=== PATIENT | female | born 1960 | race Caucasian/White ===

== ENCOUNTER 2021-11-20 17:29 | Inpatient (IN) | payer MEDICAID ==
[~2021-11-20] VITALS: Ht 167.6 cm; Wt 136.7 kg
--- NOTE | 2021-11-20 17:45 | NUR ---
Dr Alicia at the bedside for MSE.
[2021-11-20 18:09] LABS: HEMATOCRIT 30.9 % (31.2-41.9); MEAN CORPUSCULAR HEMOGLOBIN 25.8 uug (24.7-32.8); MEAN CORPUSCULAR VOLUME 80.5 fL (75.5-95.3); PLATELET COUNT (AUTO) 289 K/uL (179-408)
[2021-11-20] MEDS ORDERED: NYSTATIN POWDER TOP (18:09)
[2021-11-20] MEDS ORDERED: HYDR-4209 PO (18:09)
[2021-11-20] MEDS ORDERED: CYAN-51 SL (18:09)
[2021-11-20] MEDS ORDERED: INSU100C SQ (18:09)
[2021-11-20] MEDS ORDERED: PROTEIN LIQUID PO (18:09)
[2021-11-20] MEDS ORDERED: OMEG1CAP PO (18:09)
[2021-11-20] MEDS ORDERED: CHOL10005 PO (18:09)
[2021-11-20] MEDS ORDERED: AMLO10TA4 PO (18:09)
[2021-11-20] MEDS ORDERED: GLUC1KIT IJ (18:09)
[2021-11-20] MEDS ORDERED: BRIM5DRO RIGHTEYE (18:09)
[2021-11-20] MEDS ORDERED: LORA10TA7 PO (18:09)
[2021-11-20] MEDS ORDERED: COLL30OI TOP (18:09)
[2021-11-20] MEDS ORDERED: SENN-261 PO (18:09)
[2021-11-20] MEDS ORDERED: METO50TA7 PO (18:09)
[2021-11-20] MEDS ORDERED: DEXT38GE12 PO (18:09)
[2021-11-20] MEDS ORDERED: FURO40TA5 PO (18:09)
[2021-11-20] MEDS ORDERED: APIX5TAB PO (18:09)
[2021-11-20] MEDS ORDERED: INSU100I19 SQ (18:09)
[2021-11-20] MEDS ORDERED: NETA2.5D3 EACHEYE (18:09)
[2021-11-20] MEDS ORDERED: BISA10SU61 RC (18:09)
[2021-11-20] MEDS ORDERED: ZINC SULFATE PO (18:09)
[2021-11-20] MEDS ORDERED: CLON0.1T PO (18:09)
[2021-11-20] MEDS ORDERED: DIGO125T PO (18:09)
[2021-11-20] MEDS ORDERED: DORZ10DR13 RIGHTEYE (18:09)
[2021-11-20] MEDS ORDERED: DOCU-141 PO (18:09)
[2021-11-20] MEDS ORDERED: MELA3TAB41 PO (18:09)
[2021-11-20] MEDS ORDERED: CALC1TAB30 PO (18:09)
[2021-11-20] MEDS ORDERED: ACET-2154 PO (18:09)
[2021-11-20] MEDS ORDERED: LEVA1.2528 IH (18:09)
[2021-11-20] MEDS ORDERED: INSU100V10 SQ (18:09)
[2021-11-20] MEDS ORDERED: ASCO500C18 PO (18:09)
[2021-11-20] MEDS ORDERED: IPRA0.2S48 NEB (18:09)
[2021-11-20] MEDS ORDERED: ACET250T3 PO (18:09)
[2021-11-20] MEDS ORDERED: MULT-213 PO (18:09)
--- NOTE | 2021-11-20 18:10 | NUR ---
PT 02 delivary changed from NRM to Nasal cannula at 6L/min, 02 sat 95-96%.
[2021-11-20 18:31] LABS: ALANINE AMINOTRANSFERASE 18 U/L (14-59); ALKALINE PHOSPHATASE 73 U/L (50-136); ASPARTATE AMINOTRANSFERASE 21 U/L (15-37); BILIRUBIN,DIRECT 0.3 mg/dL (0.0-0.2); BILIRUBIN,TOTAL 1.5 mg/dL (0.2-1.0); CHLORIDE 94 mmol/L (98-107); CREATININE 0.5 mg/dL (0.6-1.3); GLUCOSE 100 mg/dL (74-106); UREA NITROGEN, BLOOD 15 mg/dL (7-18)
[2021-11-20] MEDS ORDERED: FUROSEMIDE 40 MG/4 ML VIAL IV ONE (18:45)
[2021-11-20] MEDS ORDERED: CEFTRIAXONE 1 G in IV DEXTROSE 5% 50 ML IV ONE (18:45)
[2021-11-20] MEDS ORDERED: AZITHROMYCIN IV 500 MG in IV DEXTROSE 5% 250 ML IV ONE (18:45)
[2021-11-20 18:49] LABS: CARBON DIOXIDE 52 mmol/L (21-32)
[2021-11-20] MEDS ORDERED: AZITHROMYCIN 500MG/ D5W 250ML IVPB **ER PYXIS ONLY IV ONE (19:04)
[2021-11-20] MEDS ORDERED: CEFTRIAXONE /D5W 50ML IVPB **ER PYXIS IV ONE (19:04)
--- NOTE | 2021-11-20 19:22 | NUR ---
gave pt dinner tray.
--- NOTE | 2021-11-20 22:08 | NUR ---
Report given to Rocio KIRK.
[2021-11-20] MEDS ORDERED: HYDROCODONE/APAP 5-325MG TABLET PO PRN (22:15)
[2021-11-20] MEDS ORDERED: GLUCOSE ORAL GEL 15 GM TUBE PO PRN (22:15)
[2021-11-20] MEDS ORDERED: CLONIDINE HCL 0.1 MG TABLET PO PRN (22:15)
[2021-11-20] MEDS ORDERED: ACETAMINOPHEN 325 MG TABLET PO PRN (22:30)
[2021-11-20] MEDS ORDERED: ONDANSETRON 4 MG/2 ML VIAL IV PRN (22:30)
[2021-11-20] MEDS ORDERED: DEXTROSE 50% 50 ML DISP.SYRIN IV PRN (22:30)
[2021-11-21] VITALS (14 sets, daily range): BP systolic 114–144; BP diastolic 40–69
[2021-11-21] MEDS: MORPHINE SULFATE 2 MG/1 ML DISP.SYRIN IV PRN (02:53)
[2021-11-21] MEDS ORDERED: MAG HYDROX/AL HYDROX/SIMETH 30 ML LIQUID UDC PO PRN (04:15)
--- NOTE | 2021-11-21 05:23 | NUR ---
Admitted to Tele, AFib on monitor. Requested purewick at start of admission, now patient states that she does not want a purewick at this time. IV site is intact. C/o heartburn, given Maalox, tolerated well. On 5L NC, satting 96%. Denies SOB at this time. Able to make needs known. Safety maintained throughout the shift. Will endorse to day shift.
[2021-11-21] MEDS: PANTOPRAZOLE SODIUM 40 MG TABLET.DR PO SCH (06:19)
[2021-11-21] MEDS: BLOOD SUGAR DIAGNOSTIC 1 EACH STRIP VI SCH ×4 (06:25→20:32)
[2021-11-21 06:37] LABS: HEMATOCRIT 28.4 % (31.2-41.9); MEAN CORPUSCULAR HEMOGLOBIN 26.4 uug (24.7-32.8); MEAN CORPUSCULAR VOLUME 80.2 fL (75.5-95.3); PLATELET COUNT (AUTO) 271 K/uL (179-408)
[2021-11-21 07:27] LABS: BILIRUBIN,TOTAL 1.7 mg/dL (0.2-1.0); CREATININE 0.7 mg/dL (0.6-1.3); MAGNESIUM 1.8 mg/dL (1.8-2.4); PHOSPHOROUS 4.4 mg/dL (2.5-4.9); POTASSIUM 4.1 mmol/L (3.5-5.1)
--- NOTE | 2021-11-21 07:33 | NUR ---
Sleeping, on high back rest. O2 at 5L/NC. Tele AFIB 88. Received lab report CO2 of 50. Ice Cream Mixer seen patient with orders for stat ABG, results relayed. Pulmonary consult ordered
[2021-11-21 07:35] LABS: DIGOXIN 0.8 ng/mL (0.9-2.0)
[2021-11-21 07:52] LABS: ABG BASE EXCESS 26.5 mmol/L; ABG HCO3 56.1 mmol/L; ABG PCO2 96.1 mmHg (35.0-45.0); ABG PH 7.384 (7.350-7.450); ABG PO2 81.5 mmHg (75.0-100.0); ABG SITE LEFT RADIAL; ABG TOTAL HEMOGLOBIN 10.2 G/dL (12.0-16.0); MetHb 0.2 % (0.0-1.5); O2Hb 94.4 % (94.0-97.0); VENT MODE Nasal Cannula
[2021-11-21 08:21] LABS: THYROID STIMULATING HORMONE 2.866 mIU/mL (0.358-3.740)
[2021-11-21] MEDS ORDERED: METOPROLOL SUCCINATE XL 50 MG TAB.SR.24H PO SCH (09:00)
[2021-11-21] MEDS ORDERED: ACETAzolamide 250 MG TABLET PO SCH (09:00)
[2021-11-21] MEDS ORDERED: COLLAGENASE OINT 30 GM TUBE TOP SCH (09:00)
[2021-11-21] MEDS ORDERED: FUROSEMIDE 40 MG/4 ML VIAL IV SCH (09:00)
[2021-11-21] MEDS: ASCORBIC ACID 500 MG TABLET PO SCH (09:20)
[2021-11-21] MEDS: DOCUSATE SODIUM 100 MG CAPSULE PO SCH ×2 (09:20→17:00)
[2021-11-21] MEDS: CALCIUM CARB/VITAMIN D 500MG-200UNITS TABLET PO SCH ×2 (09:20→17:00)
[2021-11-21] MEDS: AMLODIPINE 10 MG TABLET PO SCH (09:20)
[2021-11-21] MEDS: DIGOXIN 125 MCG TABLET PO SCH (09:20)
[2021-11-21] MEDS: DORZOLAMIDE/TIMOLOL OPHT DROP 10 ML BOTTLE RIGHTEYE SCH ×2 (09:21→17:38)
[2021-11-21] MEDS: APIXABAN 5 MG TABLET PO SCH ×2 (09:22→21:00)
[2021-11-21] MEDS: PROTEIN SUPPLEMENT (PROSTAT) 30 ML LIQUID PO SCH ×2 (09:22→17:00)
[2021-11-21] MEDS: ACETAzolamide 250 MG TABLET PO SCH ×2 (09:22→17:00)
[2021-11-21] MEDS: OMEGA-3 FATTY ACIDS/FISH OIL CAPSULE PO SCH (09:26)
[2021-11-21] MEDS: ZINC SULFATE 220 MG CAPSULE PO SCH (09:27)
[2021-11-21] MEDS: LORATADINE 10 MG TABLET PO SCH (09:27)
[2021-11-21] MEDS: MULTIVITAMINS,THERAPEUTIC TABLET PO SCH (09:28)
[2021-11-21] MEDS: INSULIN REGULAR, HUMAN 300 UNIT/3 ML VIAL SQ PRN ×3 (09:29→20:35)
--- NOTE | 2021-11-21 09:30 | NUR ---
O2 titrated to 3L/NC with O2 sat goal of 88-92%.
[2021-11-21] MEDS: INSULIN GLARGINE,HUM 300 UNITS/3 ML CARTRIDGE SQ SCH (09:31)
--- NOTE | 2021-11-21 10:27 | NUR ---
Noted 25 Seconds of bradycardia of 15/min. Patient awake, washing her face. Vital signs taken, BP 136/63. Basketballs And Footballs Reverser informed. Metoprolol discontinued. O2 at 3L/NC with O2 sat of 90-92%.
--- NOTE | 2021-11-21 11:48 | NUR ---
Noted another episode of bradycardia.
--- NOTE | 2021-11-21 14:34 | NUR ---
Noted 4-5 seconds pauses. Patient still awake, alert. Underground Conduit Installer informed
--- NOTE | 2021-11-21 16:09 | NUR ---
Noted 10 seconds pauses. FIELD IDENTIFICATION SPECIALIST called. STAT EKG and ABG done. Assistant Manager Retail and Hospitalist informed with orders to transfer to CCU for dopamine drip and placed on BIPAP.
[2021-11-21 16:30] LABS: ABG BASE EXCESS 22.5 mmol/L; ABG HCO3 52.3 mmol/L; ABG PCO2 98.9 mmHg (35.0-45.0); ABG PH 7.341 (7.350-7.450); ABG PO2 66.6 mmHg (75.0-100.0); ABG SITE RIGHT RADIAL; ABG TOTAL HEMOGLOBIN 10.1 G/dL (12.0-16.0); MetHb 0.1 % (0.0-1.5); O2Hb 89.7 % (94.0-97.0); VENT MODE Nasal Cannula
[2021-11-21] MEDS ORDERED: DOPamine IV DRIP 400 MG/250ML 250 ML IV PRN ×2 (16:30→17:00)
--- NOTE | 2021-11-21 16:30 | NUR ---
Transferred to CCU by bed with RT. Report given to CCU RN
--- NOTE | 2021-11-21 16:43 | NUR ---
patient came form medical surgical floor room 305, s/p rapid response c/o 10 to 11 seconds heart pauses.patient came via bed ,awake and alert able to verbalized needs .ON 02 NASAL CANNULA AT 5 L/MIN ,SOB UPON EXERTION ,saturation 86 % rr 22. respiratory therapist at b/s patient with order from Kale to placed on bipap settings 15/5 rate 16 fio2 30% keep saturation 88 % to 92%.placed patient on ccu monitor oriented with call light advised to call for help and assistance . afib rate 73 to afib 48 .patient denies chest pain .
--- NOTE | 2021-11-21 17:08 | NUR ---
started patient on dopamine drip follow dopamine drip protocol .
--- NOTE | 2021-11-21 17:45 | NUR ---
patient verbalized her butt and her back is hurting her ,another RN(daylin) and respiratory therapist turned and reposition patient able to turned help in repositioning .
--- NOTE | 2021-11-21 19:45 | NUR ---
dr: nidhi came and saw patient .
[2021-11-21 20:20] LABS: MetHb 0.2 % (0.0-1.5); VENT MODE BIPAP
[2021-11-21] MEDS: ACETAzolamide SODIUM 500 MG VIAL IV SCH (20:23)
[2021-11-21 20:48] LABS: ABG BASE EXCESS 22.1 mmol/L; ABG HCO3 51.3 mmol/L; ABG PCO2 89.3 mmHg (35.0-45.0); ABG PH 7.377 (7.350-7.450); ABG PO2 54.8 mmHg (75.0-100.0); ABG SITE RIGHT RADIAL; ABG TOTAL HEMOGLOBIN 10.6 G/dL (12.0-16.0); COHb 1.3 % (0.5-1.5)
[2021-11-21] MEDS: MELATONIN 3 MG TABLET PO SCH (21:00)
--- NOTE | 2021-11-21 23:00 | NUR ---
Report received. Patient is awake, alert, on Bipap machine 15/5, RR20, FiO 50%, O2 sat 92%. Afib on the monitor, 79bpm. IV line patent and flushed with ongoing Dopamine 2mcg/kg/min. Taylor catheter draining well to gravity. Call light within reach. Will continue to monitor closely.
--- NOTE | 2021-11-21 23:21 | NUR ---
report given to pearl babin.
[2021-11-22] VITALS (32 sets, daily range): BP systolic 98–138; BP diastolic 37–76
--- NOTE | 2021-11-22 01:46 | NUR ---
No significant change of condition noted. Will continue to monitor closely.
--- NOTE | 2021-11-22 03:11 | NUR ---
FiO2 decreased to 40%, O2 sat 96%, tolerating well. Addendum: 11/23/21 at 2118 by Liberty Ralph RN FiO2 decreased by RT Martinez.
--- NOTE | 2021-11-22 03:37 | NUR ---
PATIENT ON CONT BI/PAP MACHINE WITH FULL LARGE MASK, PT WITH LOW SATS, ON 30/11, RR16, FIO2 @ 30%, ABG WAS DRAWN A FEW TIMES, WITH HIGH PCO2, RE DRAWN TO CONFIRM RESULTS, PCO2 86APPROX, WITH NORMAL PH, , PT THEN PLACED ON FIO2 @ 50%, THEN AFTER ABG CHANGE INCREASE RR 20, PT DOING SLIGHTLY BETTER, RE ADJUST MASK, THEN 08;00, REPEAT ABG.Cindy JUNG RCP Addendum: 11/22/21 at 0345 by EVERTON JUNG RT Amended: Links added. Addendum: 11/22/21 at 0358 by EVERTON JUNG RT TITRATE FIO2 TO 40%, APPROX, 0311 BY RT Dagoberto JUNG RCP
--- NOTE | 2021-11-22 04:30 | NUR ---
Bed bath given. Linen changed.
[2021-11-22 05:31] LABS: HEMATOCRIT 29.7 % (31.2-41.9); MEAN CORPUSCULAR HEMOGLOBIN 26.4 uug (24.7-32.8); MEAN CORPUSCULAR VOLUME 79.9 fL (75.5-95.3); PLATELET COUNT (AUTO) 276 K/uL (179-408)
[2021-11-22 05:45] LABS: CREATININE 0.7 mg/dL (0.6-1.3); PHOSPHOROUS 3.7 mg/dL (2.5-4.9); POTASSIUM 3.7 mmol/L (3.5-5.1)
[2021-11-22] MEDS: BLOOD SUGAR DIAGNOSTIC 1 EACH STRIP VI SCH ×4 (06:35→20:22)
[2021-11-22] MEDS: PANTOPRAZOLE SODIUM 40 MG TABLET.DR PO SCH (06:36)
[2021-11-22] MEDS: INSULIN REGULAR, HUMAN 300 UNIT/3 ML VIAL SQ PRN ×3 (07:30→17:01)
--- NOTE | 2021-11-22 07:30 | NUR ---
received report on pt. in bed resting on bipap, no fever, a/ox4, hr in the 70s, pt gunn in tact and draining urine. IV access left FA 22g and left UA ML. will continue to monitor.
[2021-11-22] MEDS: ACETAzolamide SODIUM 500 MG VIAL IV SCH (08:20)
[2021-11-22] MEDS: ZINC SULFATE 220 MG CAPSULE PO SCH (08:21)
[2021-11-22] MEDS: DOCUSATE SODIUM 100 MG CAPSULE PO SCH ×2 (08:22→16:51)
[2021-11-22] MEDS: DIGOXIN 125 MCG TABLET PO SCH ×2 (08:22→08:39)
[2021-11-22] MEDS: APIXABAN 5 MG TABLET PO SCH ×2 (08:22→20:27)
[2021-11-22] MEDS: ASCORBIC ACID 500 MG TABLET PO SCH (08:22)
[2021-11-22] MEDS: MULTIVITAMINS,THERAPEUTIC TABLET PO SCH (08:23)
[2021-11-22] MEDS: LORATADINE 10 MG TABLET PO SCH (08:23)
[2021-11-22] MEDS: CALCIUM CARB/VITAMIN D 500MG-200UNITS TABLET PO SCH ×2 (08:23→16:52)
[2021-11-22] MEDS: OMEGA-3 FATTY ACIDS/FISH OIL CAPSULE PO SCH (08:23)
[2021-11-22] MEDS: PROTEIN SUPPLEMENT (PROSTAT) 30 ML LIQUID PO SCH ×2 (08:25→16:55)
[2021-11-22] MEDS: DORZOLAMIDE/TIMOLOL OPHT DROP 10 ML BOTTLE RIGHTEYE SCH ×2 (08:31→16:52)
[2021-11-22] MEDS: INSULIN GLARGINE,HUM 300 UNITS/3 ML CARTRIDGE SQ SCH (08:33)
[2021-11-22 08:37] LABS: ABG BASE EXCESS 21.1 mmol/L; ABG HCO3 49.3 mmol/L; ABG PCO2 80.9 mmHg (35.0-45.0); ABG PH 7.403 (7.350-7.450); ABG PO2 54.8 mmHg (75.0-100.0); ABG SITE LEFT RADIAL; ABG TOTAL HEMOGLOBIN 10.2 G/dL (12.0-16.0); COHb 1.5 % (0.5-1.5); MetHb 0.2 % (0.0-1.5); O2Hb 86.6 % (94.0-97.0); VENT MODE Nasal Cannula
[2021-11-22] MEDS: AMLODIPINE 10 MG TABLET PO SCH (08:38)
--- NOTE | 2021-11-22 08:45 | NUR ---
seen my consulting services project manager, orders to hold heart medications, and hold dopamine, will continue if pauses in rhythm occur. pt currently on 3L o2 NC, saturating at 97%.
[2021-11-22] MEDS ORDERED: ACETAzolamide SODIUM 500 MG VIAL IV ONE (09:00)
[2021-11-22] MEDS ORDERED: FUROSEMIDE 40 MG/4 ML VIAL IV SCH (09:00)
[2021-11-22] MEDS: GLUCERNA SHAKE VANILLA 237 ML CAN PO SCH (11:37)
--- NOTE | 2021-11-22 13:23 | NUR ---
Cedric (bariatric bed delivery staff) called earlier and said that the bariatric bed will come today. Primary nurse Liliya notified.
[2021-11-22] MEDS: BRIMONIDINE 0.2% OPHT DROP 10 ML BOTTLE RIGHTEYE SCH (16:53)
[2021-11-22] MEDS: FUROSEMIDE 40 MG/4 ML VIAL IV SCH (16:59)
[2021-11-22] MEDS ORDERED: APIXABAN 5 MG TABLET PO SCH (17:00)
[2021-11-22] MEDS ORDERED: ACETAzolamide SODIUM 500 MG VIAL IV SCH (17:00)
--- NOTE | 2021-11-22 17:22 | NUR ---
1701pm: SBAR received from YELENA Lovell. Fruit Or Nut Grower assumes care. Patient is asleep, on high fowlers' position, AOX4 when awake, respiration: even, shallow and symmetrical, on 1 liter nasal cannula. Patient wants suppository for bowel movement, pending extra staff to help move patient for the rectal suppository administration.
[2021-11-22] MEDS: BISACODYL 10 MG SUPP.RECT RC PRN (17:44)
--- NOTE | 2021-11-22 18:23 | NUR ---
Patient had one large brown solid (slightly hard) bowel movement. Jennifer-anal care done.
--- NOTE | 2021-11-22 20:00 | NUR ---
Patient was transferred to [facility] bed via sliding board, 4 person assisted, without any incident.
[2021-11-22] MEDS: MELATONIN 3 MG TABLET PO SCH (20:24)
[2021-11-22] MEDS: MORPHINE SULFATE 2 MG/1 ML DISP.SYRIN IV PRN (20:28)
[2021-11-22] MEDS ORDERED: VANCOMYCIN IV 2,000 MG in IV DEXTROSE 5% 500 ML IV ONE (22:00)
--- NOTE | 2021-11-22 22:05 | NUR ---
Patient placed on bipap machine c/o RT Juan, tolerating well. Patient fast asleep. Will continue to monitor closely.
[2021-11-22] MEDS ORDERED: VANCOMYCIN 1000 MG VIAL ONE (22:43)
[2021-11-22] MEDS ORDERED: PIPERACILLIN/TAZOBACTAM/D5W 50 ML IV ONE (22:43)
[2021-11-22] MEDS: PIPERACILLIN SODIUM/TAZOBACTAM 3.375 G in IV DEXTROSE 5% 50 ML IV SCH (22:48)
[2021-11-23] VITALS (24 sets, daily range): BP systolic 97–154; BP diastolic 48–82
[2021-11-23] MEDS ORDERED: PIPERACILLIN SODIUM/TAZO 3.375 GM VIAL ONE (00:51)
--- NOTE | 2021-11-23 00:53 | NUR ---
PT WAS ON O2 2 1.5 l/m nc, pt placed on bi/pap @ 22:00, with 15/5 r20 , titrate fio2 28-30%, keep sat 88-92% , adjust mask several times, leaks alot under chin, pt does wake up alot . Lonnie JUNG SALES TEAM RECRUITER Addendum: 11/23/21 at 0055 by EVERTON JUNG RT Amended: Links added.
[2021-11-23] MEDS: PIPERACILLIN SODIUM/TAZOBACTAM 3.375 G in IV DEXTROSE 5% 50 ML IV SCH ×3 (05:39→21:23)
[2021-11-23 05:43] LABS: HEMATOCRIT 28.3 % (31.2-41.9); MEAN CORPUSCULAR HEMOGLOBIN 26.5 uug (24.7-32.8); MEAN CORPUSCULAR VOLUME 80.4 fL (75.5-95.3); PLATELET COUNT (AUTO) 247 K/uL (179-408)
[2021-11-23 05:54] LABS: BILIRUBIN,TOTAL 1.6 mg/dL (0.2-1.0); CREATININE 0.8 mg/dL (0.6-1.3); PHOSPHOROUS 3.6 mg/dL (2.5-4.9); POTASSIUM 3.1 mmol/L (3.5-5.1); TOTAL PROTEIN, SERUM 6.4 g/dL (6.4-8.2)
--- NOTE | 2021-11-23 06:36 | NUR ---
Lab called and spoke with Hussain arellano: critical lab CO2 53. Called [facility] and spoke with Timoteo Abdullahi NP. Per Bradly MCCURDY, no new orders.
[2021-11-23] MEDS: BLOOD SUGAR DIAGNOSTIC 1 EACH STRIP VI SCH ×4 (06:47→20:38)
[2021-11-23] MEDS: PANTOPRAZOLE SODIUM 40 MG TABLET.DR PO SCH (06:47)
[2021-11-23] MEDS: INSULIN REGULAR, HUMAN 300 UNIT/3 ML VIAL SQ PRN ×4 (07:46→20:40)
[2021-11-23] MEDS: ZINC SULFATE 220 MG CAPSULE PO SCH (08:24)
[2021-11-23] MEDS: OMEGA-3 FATTY ACIDS/FISH OIL CAPSULE PO SCH (08:24)
[2021-11-23] MEDS: LORATADINE 10 MG TABLET PO SCH (08:24)
[2021-11-23] MEDS: DOCUSATE SODIUM 100 MG CAPSULE PO SCH ×2 (08:24→17:53)
[2021-11-23] MEDS: CALCIUM CARB/VITAMIN D 500MG-200UNITS TABLET PO SCH ×2 (08:24→17:53)
[2021-11-23] MEDS: FUROSEMIDE 40 MG/4 ML VIAL IV SCH ×2 (08:24→17:53)
[2021-11-23] MEDS: MULTIVITAMINS,THERAPEUTIC TABLET PO SCH (08:25)
[2021-11-23] MEDS: ASCORBIC ACID 500 MG TABLET PO SCH (08:25)
[2021-11-23] MEDS: APIXABAN 5 MG TABLET PO SCH ×2 (08:30→20:28)
[2021-11-23] MEDS: INSULIN GLARGINE,HUM 300 UNITS/3 ML CARTRIDGE SQ SCH (08:31)
[2021-11-23] MEDS: BRIMONIDINE 0.2% OPHT DROP 10 ML BOTTLE RIGHTEYE SCH ×2 (08:32→17:53)
[2021-11-23] MEDS: GLUCERNA SHAKE VANILLA 237 ML CAN PO SCH (08:33)
[2021-11-23] MEDS: PROTEIN SUPPLEMENT (PROSTAT) 30 ML LIQUID PO SCH ×2 (08:33→17:49)
[2021-11-23] MEDS: DORZOLAMIDE/TIMOLOL OPHT DROP 10 ML BOTTLE RIGHTEYE SCH ×2 (08:33→17:53)
[2021-11-23 08:36] LABS: ABG BASE EXCESS 18.2 mmol/L; ABG HCO3 47.5 mmol/L; ABG PCO2 86.2 mmHg (35.0-45.0); ABG PH 7.359 (7.350-7.450); ABG PO2 58.2 mmHg (75.0-100.0); ABG SITE LEFT RADIAL; ABG TOTAL HEMOGLOBIN 11.5 G/dL (12.0-16.0); COHb 1.8 % (0.5-1.5); MetHb 0.1 % (0.0-1.5); O2Hb 87.1 % (94.0-97.0); VENT MODE Nasal Cannula
[2021-11-23] MEDS ORDERED: POTASSIUM CHLORIDE 20 MEQ POWDER PACKET PO ONE (09:15)
--- NOTE | 2021-11-23 09:26 | NUR ---
removed pt from bipap and placed on n/c 1 lpm 02. pt anna well. pt awake and responsive at this time. slight redness noted on nose bridge despite pt having nose jelly/ protector on while on bipap. nurse made aware.
[2021-11-23] MEDS ORDERED: POTASSIUM CHLORIDE 20 MEQ TAB.PRT.SR PO ONE (09:30)
--- NOTE | 2021-11-23 09:46 | NUR ---
doctor иван in the unit to see patient. ok for downgrade per cardio stand point.
[2021-11-23] MEDS: POTASSIUM CHLORIDE 50 ML IV SCH ×4 (09:51→17:49)
--- NOTE | 2021-11-23 12:00 | NUR ---
Per Dr. Currie patient to continue ICU status monitoring one more night.
[2021-11-23] MEDS ORDERED: VANCOMYCIN IV 1,500 MG in IV DEXTROSE 5% 500 ML IV SCH (14:00)
[2021-11-23] MEDS: VANCOMYCIN IV 2,000 MG in IV DEXTROSE 5% 500 ML IV SCH (14:14)
--- NOTE | 2021-11-23 19:00 | NUR ---
Received report. Patient is awake, alert, denies pain at this time. NAD. IV patent and flushed. VSS. Able to make needs known with assistance. Call light within reach. Will continue to monitor closely.
[2021-11-23] MEDS: MELATONIN 3 MG TABLET PO SCH (20:23)
[2021-11-23] MEDS ORDERED: REMEDY ESSENTIAL ZINC PASTE 113 GM TOP PRN (20:30)
--- NOTE | 2021-11-23 21:20 | NUR ---
Placed on bipap machine c/o RT Juan, tolerating well, O2 sat 92%. Will continue to monitor closely.
[2021-11-23] MEDS ORDERED: VANCOMYCIN 1000 MG VIAL ONE (21:52)
--- NOTE | 2021-11-23 23:43 | NUR ---
PATIENT ON O2 1.5- 2.0L/M NC, AT BEGINNING OF SHIFT, THEN FALLING ASLEEP, PT PLACED ON BI/PAP APPROX. 22:00 WITH SETTINGS, 20/10, RR20, FIO2 @ 30%, PT TENDS TO BREATH SLIGHTLY SHALLOW AND RAPID 30RR, AT TIMES, ADJUST MASK AT TIMES, WILL MONITOR, SAT 87-92% , .Cindy JUNG DATA CENTER OPERATOR Addendum: 11/23/21 at 2345 by EVERTON JUNG RT Amended: Links added.
[2021-11-24] VITALS (15 sets, daily range): BP systolic 98–131; BP diastolic 50–80
[2021-11-24] MEDS: VANCOMYCIN IV 2,000 MG in IV DEXTROSE 5% 500 ML IV SCH (04:02)
[2021-11-24] MEDS: PIPERACILLIN SODIUM/TAZOBACTAM 3.375 G in IV DEXTROSE 5% 50 ML IV SCH ×3 (05:04→21:17)
[2021-11-24 05:17] LABS: HEMATOCRIT 25.8 % (31.2-41.9); MEAN CORPUSCULAR HEMOGLOBIN 26.4 uug (24.7-32.8); PLATELET COUNT (AUTO) 219 K/uL (179-408)
[2021-11-24 05:29] LABS: CREATININE 0.8 mg/dL (0.6-1.3); MAGNESIUM 2.8 mg/dL (1.8-2.4); PHOSPHOROUS 3.6 mg/dL (2.5-4.9); POTASSIUM 3.4 mmol/L (3.5-5.1)
--- NOTE | 2021-11-24 05:38 | NUR ---
Bipap removed and placed on NC @1.5 LPM c/o RT Juan, O2 sat 92%.
[2021-11-24] MEDS: PANTOPRAZOLE SODIUM 40 MG TABLET.DR PO SCH (06:14)
[2021-11-24] MEDS: BLOOD SUGAR DIAGNOSTIC 1 EACH STRIP VI SCH ×4 (07:01→21:38)
[2021-11-24 08:32] LABS: ABG BASE EXCESS 17.4 mmol/L; ABG HCO3 45.6 mmol/L; ABG PCO2 80.7 mmHg (35.0-45.0); ABG PO2 74.5 mmHg (75.0-100.0); ABG SITE LEFT RADIAL; ABG TOTAL HEMOGLOBIN 9.8 G/dL (12.0-16.0); COHb 1.5 % (0.5-1.5); MetHb 0.1 % (0.0-1.5); O2Hb 92.2 % (94.0-97.0); VENT MODE Nasal Cannula
[2021-11-24] MEDS: ASCORBIC ACID 500 MG TABLET PO SCH (08:53)
[2021-11-24] MEDS: CALCIUM CARB/VITAMIN D 500MG-200UNITS TABLET PO SCH ×2 (08:53→17:08)
[2021-11-24] MEDS: OMEGA-3 FATTY ACIDS/FISH OIL CAPSULE PO SCH (08:53)
[2021-11-24] MEDS: MULTIVITAMINS,THERAPEUTIC TABLET PO SCH (08:53)
[2021-11-24] MEDS: LORATADINE 10 MG TABLET PO SCH (08:53)
[2021-11-24] MEDS: ZINC SULFATE 220 MG CAPSULE PO SCH (08:53)
[2021-11-24] MEDS: FUROSEMIDE 40 MG/4 ML VIAL IV SCH ×2 (08:54→17:08)
[2021-11-24] MEDS: INSULIN GLARGINE,HUM 300 UNITS/3 ML CARTRIDGE SQ SCH (08:56)
[2021-11-24] MEDS: INSULIN REGULAR, HUMAN 300 UNIT/3 ML VIAL SQ PRN ×4 (08:58→21:46)
[2021-11-24] MEDS ORDERED: POTASSIUM CHLORIDE 20 MEQ POWDER PACKET PO ONE (09:00)
[2021-11-24] MEDS: PROTEIN SUPPLEMENT (PROSTAT) 30 ML LIQUID PO SCH ×2 (09:41→17:06)
[2021-11-24] MEDS: GLUCERNA SHAKE VANILLA 237 ML CAN PO SCH (09:41)
[2021-11-24] MEDS: DORZOLAMIDE/TIMOLOL OPHT DROP 10 ML BOTTLE RIGHTEYE SCH ×2 (09:42→17:09)
[2021-11-24] MEDS: BRIMONIDINE 0.2% OPHT DROP 10 ML BOTTLE RIGHTEYE SCH ×2 (09:42→17:09)
[2021-11-24] MEDS: DOCUSATE SODIUM 100 MG CAPSULE PO SCH ×2 (10:10→17:08)
[2021-11-24] MEDS: POTASSIUM CHLORIDE 50 ML IV SCH ×2 (10:10→14:14)
[2021-11-24] MEDS: APIXABAN 5 MG TABLET PO SCH ×2 (10:10→21:18)
--- NOTE | 2021-11-24 12:33 | NUR ---
WOUND CARE CONSULT: PT PRESENTS WITH STAGE 3 ULCER TO RT BUTTOCK, RASH WITH PEELING SKIN TO BUTTOCKS AND REDNESS WITH SWELLING AND SCALY SKIN TO LOWER LEGS, ALL PRESENT ON ADMISSION. DR RIVERO NOTIFIED OF SURGICAL CONSULT AND DPM CONSULT REQUESTS. RECOMMENDATIONS MADE FOR SKIN PROTECTION. DISCUSSED WITH NURSING STAFF. MD IN AGREEMENT WITH PLAN OF CARE. Addendum: 11/24/21 at 1234 by MAXI RED RN Amended: Links added.
[2021-11-24] MEDS: MORPHINE SULFATE 2 MG/1 ML DISP.SYRIN IV PRN (15:00)
[2021-11-24] MEDS ORDERED: VITAMINS A AND D OINT TP PRN (15:15)
[2021-11-24] MEDS: MELATONIN 3 MG TABLET PO SCH (21:17)
[2021-11-24] MEDS ORDERED: CEFTRIAXONE 1 G in IV DEXTROSE 5% 50 ML IV SCH (21:45)
[2021-11-24] MEDS ORDERED: CEFTRIAXONE /D5W 50ML IVPB **ER PYXIS IV ONE (22:50)
[2021-11-25 00:16] VITALS: BP 119/71
[2021-11-25 04:00] VITALS: BP 114/59
[2021-11-25 05:20] LABS: HEMATOCRIT 27.1 % (31.2-41.9); PLATELET COUNT (AUTO) 234 K/uL (179-408)
[2021-11-25 05:25] LABS: CREATININE 0.8 mg/dL (0.6-1.3); MAGNESIUM 1.9 mg/dL (1.8-2.4); PHOSPHOROUS 3.7 mg/dL (2.5-4.9); POTASSIUM 3.5 mmol/L (3.5-5.1)
[2021-11-25 05:37] LABS: VANCOMYCIN,RANDOM 28.5 ug/mL (18.0-26.0)
--- NOTE | 2021-11-25 06:50 | NUR ---
Patient has not met any of her goals. All the outcomes are still in progress. Interventions continue per MD orders and Nursing care plan. Addendum: 11/25/21 at 0652 by ANNY CRENSHAW RN Amended: Links added.
[2021-11-25] MEDS ORDERED: POTASSIUM CHLORIDE 20 MEQ POWDER PACKET GT ONE (07:30)
[2021-11-25] MEDS ORDERED: POTASSIUM CHLORIDE 20 MEQ TAB.PRT.SR PO ONE (07:30)
[2021-11-25 08:00] VITALS: BP_SYST 123; BP_SYST 131; BP_DIAS 54; BP_DIAS 62
[2021-11-25] MEDS: BLOOD SUGAR DIAGNOSTIC 1 EACH STRIP VI SCH ×4 (08:14→21:32)
[2021-11-25] MEDS: PANTOPRAZOLE SODIUM 40 MG TABLET.DR PO SCH (08:14)
[2021-11-25] MEDS: ASCORBIC ACID 500 MG TABLET PO SCH (09:03)
[2021-11-25] MEDS: ZINC SULFATE 220 MG CAPSULE PO SCH (09:03)
[2021-11-25] MEDS: OMEGA-3 FATTY ACIDS/FISH OIL CAPSULE PO SCH (09:03)
[2021-11-25] MEDS: CALCIUM CARB/VITAMIN D 500MG-200UNITS TABLET PO SCH ×2 (09:03→17:20)
[2021-11-25] MEDS: MULTIVITAMINS,THERAPEUTIC TABLET PO SCH (09:04)
[2021-11-25] MEDS: LORATADINE 10 MG TABLET PO SCH (09:04)
[2021-11-25] MEDS: FUROSEMIDE 40 MG/4 ML VIAL IV SCH ×2 (09:04→17:21)
[2021-11-25] MEDS: PROTEIN SUPPLEMENT (PROSTAT) 30 ML LIQUID PO SCH ×2 (09:04→17:21)
[2021-11-25] MEDS: GLUCERNA SHAKE VANILLA 237 ML CAN PO SCH (09:04)
[2021-11-25] MEDS: DOCUSATE SODIUM 100 MG CAPSULE PO SCH ×2 (09:04→17:20)
[2021-11-25] MEDS: APIXABAN 5 MG TABLET PO SCH ×2 (09:19→21:16)
[2021-11-25] MEDS: DORZOLAMIDE/TIMOLOL OPHT DROP 10 ML BOTTLE RIGHTEYE SCH ×2 (09:23→17:21)
[2021-11-25] MEDS: BRIMONIDINE 0.2% OPHT DROP 10 ML BOTTLE RIGHTEYE SCH ×2 (09:31→17:21)
[2021-11-25] MEDS: INSULIN GLARGINE,HUM 300 UNITS/3 ML CARTRIDGE SQ SCH (09:53)
[2021-11-25] MEDS ORDERED: ACETAzolamide SODIUM 500 MG VIAL IV ONE (10:15)
[2021-11-25] MEDS: SENNOSIDES 1 TABLET PO PRN (10:26)
[2021-11-25 12:00] VITALS: BP 115/71
[2021-11-25] MEDS: INSULIN REGULAR, HUMAN 300 UNIT/3 ML VIAL SQ PRN ×2 (12:02→17:16)
--- NOTE | 2021-11-25 14:31 | NUR ---
Transferred from ccu. Alert and oriented x3 able to make needs known. On 2lpm nc satting 93%. no sob noted. afib on telemonitor hr 90. Patient made comfortable. Call light in reach. Cont to monitor.
[2021-11-25 14:34] VITALS: BP 116/61
[2021-11-25] MEDS: MORPHINE SULFATE 2 MG/1 ML DISP.SYRIN IV PRN (14:41)
[2021-11-25] MEDS: CLOTRIMAZOLE 1% CREAM 30 GM TUBE TOP SCH ×2 (17:21→21:15)
[2021-11-25 20:52] VITALS: BP 114/63
[2021-11-25] MEDS: CEFTRIAXONE 2 G in IV DEXTROSE 5% 100 ML IV SCH (21:13)
[2021-11-25] MEDS: MELATONIN 3 MG TABLET PO SCH (21:14)
[2021-11-26 00:59] VITALS: BP 141/60
[2021-11-26 04:00] VITALS: BP 120/77
--- NOTE | 2021-11-26 05:17 | NUR ---
Pt slept throughout the night. Bipap placed on around 2345H, tolerated well. IV site intact. No distress noted. Denies SOB. Safety maintained. Will endorse to day shift.
[2021-11-26] MEDS: PANTOPRAZOLE SODIUM 40 MG TABLET.DR PO SCH (06:15)
[2021-11-26] MEDS: BLOOD SUGAR DIAGNOSTIC 1 EACH STRIP VI SCH ×4 (06:26→20:30)
[2021-11-26 06:48] LABS: HEMATOCRIT 28.2 % (31.2-41.9); MEAN CORPUSCULAR HEMOGLOBIN 26.2 uug (24.7-32.8); MEAN CORPUSCULAR VOLUME 80.7 fL (75.5-95.3); PLATELET COUNT (AUTO) 252 K/uL (179-408)
[2021-11-26 07:30] LABS: CREATININE 0.7 mg/dL (0.6-1.3); PHOSPHOROUS 3.5 mg/dL (2.5-4.9); POTASSIUM 3.5 mmol/L (3.5-5.1); VANCOMYCIN,RANDOM 17.3 ug/mL (18.0-26.0)
--- NOTE | 2021-11-26 08:00 | NUR ---
PATIENT RESTING IN BED NO SS OF PAIN OR DISTRESS. O2 DECREASE TO 1L VIA NC SATURATING 90-92 %. CONTINUE TELE STATUS CONTROLLED AFIB ON MONITOR
[2021-11-26] MEDS ORDERED: ACETAzolamide SODIUM 500 MG VIAL IV ONE (08:45)
[2021-11-26] MEDS: CALCIUM CARB/VITAMIN D 500MG-200UNITS TABLET PO SCH ×2 (08:59→16:24)
[2021-11-26] MEDS: DOCUSATE SODIUM 100 MG CAPSULE PO SCH ×2 (08:59→16:24)
[2021-11-26] MEDS: OMEGA-3 FATTY ACIDS/FISH OIL CAPSULE PO SCH (08:59)
[2021-11-26] MEDS: APIXABAN 5 MG TABLET PO SCH ×2 (08:59→20:32)
[2021-11-26] MEDS: MULTIVITAMINS,THERAPEUTIC TABLET PO SCH (08:59)
[2021-11-26] MEDS: LORATADINE 10 MG TABLET PO SCH (08:59)
[2021-11-26] MEDS: ASCORBIC ACID 500 MG TABLET PO SCH (08:59)
[2021-11-26] MEDS: SENNOSIDES 1 TABLET PO PRN (08:59)
[2021-11-26] MEDS: ZINC SULFATE 220 MG CAPSULE PO SCH (08:59)
[2021-11-26] MEDS: VANCOMYCIN IV 1,500 MG in IV DEXTROSE 5% 500 ML IV SCH (09:00)
[2021-11-26] MEDS: FUROSEMIDE 40 MG/4 ML VIAL IV SCH ×2 (09:00→16:24)
--- NOTE | 2021-11-26 09:00 | NUR ---
SEEN BY EDITOR PRODUCER FOR FOLLOW-UP SEE NOTES
[2021-11-26] MEDS: CLOTRIMAZOLE 1% CREAM 30 GM TUBE TOP SCH ×4 (09:03→16:25)
[2021-11-26] MEDS: POTASSIUM CHLORIDE 20 MEQ TAB.PRT.SR PO SCH ×2 (09:06→15:21)
[2021-11-26] MEDS: GLUCERNA SHAKE VANILLA 237 ML CAN PO SCH (09:08)
[2021-11-26] MEDS: PROTEIN SUPPLEMENT (PROSTAT) 30 ML LIQUID PO SCH ×2 (09:10→16:25)
[2021-11-26] MEDS: BRIMONIDINE 0.2% OPHT DROP 10 ML BOTTLE RIGHTEYE SCH ×2 (10:36→16:24)
[2021-11-26] MEDS: DORZOLAMIDE/TIMOLOL OPHT DROP 10 ML BOTTLE RIGHTEYE SCH ×2 (10:37→16:25)
[2021-11-26] MEDS: INSULIN GLARGINE,HUM 300 UNITS/3 ML CARTRIDGE SQ SCH (10:44)
--- NOTE | 2021-11-26 11:24 | NUR ---
SEEN BY HOSPITALIST AND UNDRAPED ARTIST MODEL FOR FOLLOW-UP, NO NEW ORDERS. SEE NOTES
[2021-11-26 11:35] VITALS: BP 136/62
[2021-11-26] MEDS: INSULIN REGULAR, HUMAN 300 UNIT/3 ML VIAL SQ PRN ×3 (11:43→20:35)
[2021-11-26] MEDS: BISACODYL 10 MG SUPP.RECT RC PRN (11:44)
[2021-11-26] MEDS: IPRATROPIUM BROMIDE 0.5 MG/2.5 ML NEBU NEB PRN (15:04)
[2021-11-26 16:00] VITALS: BP 145/57
[2021-11-26 20:00] VITALS: BP 161/51
[2021-11-26] MEDS: CEFTRIAXONE 2 G in IV DEXTROSE 5% 100 ML IV SCH (20:31)
[2021-11-26] MEDS: MELATONIN 3 MG TABLET PO SCH ×2 (20:31→20:45)
--- NOTE | 2021-11-27 02:24 | NUR ---
Patient On nocturnal Bipap O2 sat of <88% with air leaks.Patient alert and able to make needs known,able to follow commands. HOB elevated. Rt called. Patient denies SOB at this time. Repositioned patient. Patient O2 sat went up to 88-92%.Call light with in reach. Will continue to monitor.
--- NOTE | 2021-11-27 03:26 | NUR ---
PATIENT PLACED ON BI/PAP APPROX. 21:30, PT WAS ON O2 1.5 L/M NC, APPROX, PT GETTING SLEEPY , AND ON BI/PAP 20/10 RR20 , FIO2 30%, DOES DE SAT AT TIMES, RE ADJUST MASK AT TIMES, WILL TAKE OFF APPROX. 0500, FOR 1.5 L/M NC , FOR ABG .Cindy JUNG RESIDENCE LIFE DIRECTOR Addendum: 11/27/21 at 0327 by EVERTON JUNG RT Amended: Links added.
[2021-11-27 04:00] VITALS: BP 126/78
[2021-11-27] MEDS: VANCOMYCIN IV 1,500 MG in IV DEXTROSE 5% 500 ML IV SCH (04:37)
[2021-11-27 06:03] LABS: ABG BASE EXCESS 14.8 mmol/L; ABG HCO3 42.8 mmol/L; ABG PCO2 75.5 mmHg (35.0-45.0); ABG PH 7.371 (7.350-7.450); ABG PO2 46.3 mmHg (75.0-100.0); ABG SITE RIGHT RADIAL; ABG TOTAL HEMOGLOBIN 10.2 G/dL (12.0-16.0); COHb 1.4 % (0.5-1.5); MetHb 0.1 % (0.0-1.5); O2Hb 80.4 % (94.0-97.0); VENT MODE Nasal Cannula
--- NOTE | 2021-11-27 06:08 | NUR ---
PT WAS TAKEN OFF BI/PAP APPROX 05;15, PT PLACED ON O2 @ 1L/M NC , AWAKE AND ALERT, ABG WITH PCO2 75 , PO2 46, PT PLACED ON 1 1/2 LM NC . Cindy JUNG SHOP TECHNICIAN Addendum: 11/27/21 at 0610 by EVERTON JUNG RT Amended: Links added.
[2021-11-27] MEDS: PANTOPRAZOLE SODIUM 40 MG TABLET.DR PO SCH (06:11)
[2021-11-27 06:49] LABS: HEMATOCRIT 27.5 % (31.2-41.9); MEAN CORPUSCULAR HEMOGLOBIN 26.4 uug (24.7-32.8); PLATELET COUNT (AUTO) 260 K/uL (179-408)
[2021-11-27] MEDS: BLOOD SUGAR DIAGNOSTIC 1 EACH STRIP VI SCH ×4 (07:05→20:06)
[2021-11-27 07:10] LABS: MAGNESIUM 1.9 mg/dL (1.8-2.4); PHOSPHOROUS 2.7 mg/dL (2.5-4.9)
[2021-11-27 07:20] LABS: CREATININE 0.7 mg/dL (0.6-1.3); POTASSIUM 3.7 mmol/L (3.5-5.1)
--- NOTE | 2021-11-27 07:30 | NUR ---
PATIENT IN BED RESTING COMFORTABLY WITH 1L O2 VIA NC SATURATING 90-92%. REMAINS AFIB ON MONITOR
[2021-11-27] MEDS: INSULIN REGULAR, HUMAN 300 UNIT/3 ML VIAL SQ PRN ×2 (07:44→11:24)
[2021-11-27] MEDS: ASCORBIC ACID 500 MG TABLET PO SCH (08:17)
[2021-11-27] MEDS: FUROSEMIDE 40 MG/4 ML VIAL IV SCH ×2 (08:17→17:14)
[2021-11-27] MEDS: CALCIUM CARB/VITAMIN D 500MG-200UNITS TABLET PO SCH ×2 (08:18→17:14)
[2021-11-27] MEDS: DOCUSATE SODIUM 100 MG CAPSULE PO SCH ×2 (08:18→17:14)
[2021-11-27] MEDS: LORATADINE 10 MG TABLET PO SCH (08:18)
[2021-11-27] MEDS: SENNOSIDES 1 TABLET PO PRN (08:18)
[2021-11-27] MEDS: ZINC SULFATE 220 MG CAPSULE PO SCH (08:18)
[2021-11-27] MEDS: OMEGA-3 FATTY ACIDS/FISH OIL CAPSULE PO SCH (08:18)
[2021-11-27] MEDS: MULTIVITAMINS,THERAPEUTIC TABLET PO SCH (08:18)
[2021-11-27] MEDS: APIXABAN 5 MG TABLET PO SCH ×2 (08:20→20:05)
[2021-11-27] MEDS: PROTEIN SUPPLEMENT (PROSTAT) 30 ML LIQUID PO SCH ×2 (08:20→17:14)
[2021-11-27] MEDS: CLOTRIMAZOLE 1% CREAM 30 GM TUBE TOP SCH ×4 (08:21→17:16)
[2021-11-27] MEDS: DORZOLAMIDE/TIMOLOL OPHT DROP 10 ML BOTTLE RIGHTEYE SCH ×2 (08:21→17:15)
[2021-11-27] MEDS: BRIMONIDINE 0.2% OPHT DROP 10 ML BOTTLE RIGHTEYE SCH ×2 (08:21→17:15)
[2021-11-27] MEDS: INSULIN GLARGINE,HUM 300 UNITS/3 ML CARTRIDGE SQ SCH (08:33)
[2021-11-27] MEDS: GLUCERNA SHAKE VANILLA 237 ML CAN PO SCH (08:34)
[2021-11-27] MEDS ORDERED: ACETAzolamide SODIUM 500 MG VIAL IV ONE (09:15)
--- NOTE | 2021-11-27 09:15 | NUR ---
SEEN BOTH BY LIFE GUARD AND SOFTWARE APPLICATIONS SPECIALIST WITH NEW ORDERS. SEE NOTES
[2021-11-27 11:30] VITALS: BP 142/61
[2021-11-27] MEDS: IPRATROPIUM BROMIDE 0.5 MG/2.5 ML NEBU NEB PRN (12:04)
[2021-11-27] MEDS: POTASSIUM CHLORIDE 20 MEQ TAB.PRT.SR PO SCH ×2 (12:39→17:14)
--- NOTE | 2021-11-27 13:00 | NUR ---
SEEN BY HOSPITALIST WITH DC ORDER BACK TO [facility]. POWER TRANSMISSION ENGINEER AWARE. PATIENT WILL BE TRANSFERRED VIA [facility]
--- NOTE | 2021-11-27 15:21 | NUR ---
REPORT GIVEN TO [facility] MARKERYELENA GRUBBS
[2021-11-27 16:00] VITALS: BP 102/66
[2021-11-27 20:00] VITALS: BP 141/71
[2021-11-27] MEDS: CEFTRIAXONE 2 G in IV DEXTROSE 5% 100 ML IV SCH (20:07)
[2021-11-27] MEDS: MELATONIN 3 MG TABLET PO SCH (20:09)
--- NOTE | 2021-11-27 20:58 | NUR ---
Patient AALOX4 with O2 a@ 1LPM vi a Nc saturating at 95 %.Denies pain or discomfort at this time.Taylor catheter draining well .Midline removed on right upper arm. No active bleeding noted. Tolerated well.Discharged instruction given to patient and belongings.Picked up by Bariatric transportation with 3 crew in stable condition.
== END 2021-11-27 20:50 | DRG 194 ==
LOC: ER 17:34 → TELE3 22:17 → CCU 11-21 16:31 → TELE3 11-25 14:36
PROVIDERS: ADMIT Internal Medicine
PROC: B547ZZA Ultrasonography of Left Subclavian Vein, Guidance (ICD-10-PCS; principal; 2021-11-21)
PROC: 05H633Z Insertion of Infusion Device into Left Subclavian Vein, Percutaneous Approach (ICD-10-PCS; principal; 2021-11-21)
PROC: 5A09457 Assistance with Respiratory Ventilation, 24-96 Consecutive Hours, Continuous Positive Airway Pressure (ICD-10-PCS; principal; 2021-11-21)
PROC: 05H533Z Insertion of Infusion Device into Right Subclavian Vein, Percutaneous Approach (ICD-10-PCS; 2021-11-25)
PROC: 0JB93ZZ Excision of Buttock Subcutaneous Tissue and Fascia, Percutaneous Approach (ICD-10-PCS; 2021-11-25)
PROC: B546ZZA Ultrasonography of Right Subclavian Vein, Guidance (ICD-10-PCS; 2021-11-25)
DX: I11.0 Hypertensive heart disease with heart failure (principal); J96.21 Acute and chronic respiratory failure with hypoxia; E87.2 Acidosis; L89.313 Pressure ulcer of right buttock, stage 3; E44.0 Moderate protein-calorie malnutrition; D68.59 Other primary thrombophilia; E66.2 Morbid (severe) obesity with alveolar hypoventilation; E87.4 Mixed disorder of acid-base balance; J18.9 Pneumonia, unspecified organism; I42.9 Cardiomyopathy, unspecified; J90 Pleural effusion, not elsewhere classified; L03.115 Cellulitis of right lower limb; L03.116 Cellulitis of left lower limb; J96.22 Acute and chronic respiratory failure with hypercapnia; I50.33 Acute on chronic diastolic (congestive) heart failure; Z20.822 Contact with and (suspected) exposure to COVID-19; B35.3 Tinea pedis; E11.9 Type 2 diabetes mellitus without complications; D50.9 Iron deficiency anemia, unspecified; E78.5 Hyperlipidemia, unspecified; H40.9 Unspecified glaucoma; I48.20 Chronic atrial fibrillation, unspecified; L30.4 Erythema intertrigo; Z87.891 Personal history of nicotine dependence; I25.10 Atherosclerotic heart disease of native coronary artery without angina pectoris; I87.2 Venous insufficiency (chronic) (peripheral); Z68.42 Body mass index [BMI] 45.0-49.9, adult; E88.09 Other disorders of plasma-protein metabolism, not elsewhere classified; E80.4 Gilbert syndrome; Z74.01 Bed confinement status; Z79.01 Long term (current) use of anticoagulants; Z79.4 Long term (current) use of insulin
CPT/HCPCS: 36415; 36600; 71045; 82785; 83550; 83605; 83735; 84100; 84443; 84484; 85025; 85610; 86140; 87040; 93005; 93307; 94640; 94660; 97161; A4663; A6209; A6213; G0378; J0456; J0696; J1120; J1815; J1940; J2270; J2543; J3370; J3480; J3590; J7040; J7050; J7060; J8499